=== PATIENT | female | born 1930 | race Caucasian/White ===

== ENCOUNTER → 2016-11-17 | Outpatient (CLI) | payer MEDICARE, BC ==
--- NOTE | 2016-11-18 10:58 | CR ---
EXAMINATION: Right knee HISTORY: Pain COMPARISON: 11/14/2016 TECHNIQUE: 4 views FINDINGS: There is severe joint space narrowing within the patellofemoral compartment. Chondrocalcin osis is noted. No fracture or acute osseous abnormality. There is a small suprapatellar joint effusi on. Bone mineralization appears osteopenic. IMPRESSION: 1. Severe joint space narrowing within the patellofemoral compartment. 2. Small joint effusion. 3. Generalized osteopenia.
== END ==
LOC: MW.CHORTHO 08:24
PROVIDERS: ATTEND Physician Assistant
DX: M25.561 Pain in right knee (principal); M25.861 Other specified joint disorders, right knee; M25.461 Effusion, right knee; M85.88 Other specified disorders of bone density and structure, other site
CPT/HCPCS: 20610; 73564-26-RT; 73564-RT; 99203; J1040